=== PATIENT | female | born 1995 | race African-American/Black ===

== ENCOUNTER → 2024-10-31 | Emergency (ER) | payer OTHER ==
[~2024-10-31] VITALS: Ht 175.3 cm; Wt 96.8 kg
[2024-10-31 16:45] VITALS: BP 129/64; PULSE 68; RESP 17; TEMP 98; O2SAT 98
== END | disposition still patient (30) ==
LOC: EMS 14:29
DX: S06.0XAA Concussion with loss of consciousness status unknown, initial encounter (principal); R10.31 Right lower quadrant pain; M54.9 Dorsalgia, unspecified; W18.2XXA Fall in (into) shower or empty bathtub, initial encounter; Y93.89 Activity, other specified; Y92.89 Other specified places as the place of occurrence of the external cause; Y99.8 Other external cause status
CPT/HCPCS: 70450; 72125; 72128; 99284